=== PATIENT | female | born 1975 | race Caucasian/White ===

== ENCOUNTER 2017-12-19 19:50 | Emergency (ER) | payer BC ==
[~2017-12-19] VITALS: Ht 167.6 cm; Wt 68.0 kg
[~2017-12-19 19:50] MED LIST: ESOM20CA33 PO
[2017-12-19 19:59] VITALS: BP_SYST 122
[2017-12-19] MEDS ORDERED: NACL 0.9% 1,000 ML IV ONE (20:02)
[2017-12-19] MEDS ORDERED: MAG HYDROX/AL HYDROX/SIMETH 30 ML, BELLADONNA ALKALOIDS/PHENOBARB 10 ML, LIDOCAINE VISC... PO ONE ×3 (20:15)
[2017-12-19] MEDS ORDERED: KETOROLAC TROMETHAMINE 30 MG VIAL IVP ONE (20:15)
[2017-12-19 22:15] VITALS: BP_SYST 90
== END 2017-12-19 22:15 | disposition home or self-care (01) ==
LOC: SED 19:50
DX: K29.70 Gastritis, unspecified, without bleeding (principal); T50.995A Adverse effect of other drugs, medicaments and biological substances, initial encounter; Z98.84 Bariatric surgery status; Y92.89 Other specified places as the place of occurrence of the external cause
CPT/HCPCS: 74021; 99284; J1885; J2001; J7030